=== PATIENT | male | born 1985 | race Caucasian/White ===

== ENCOUNTER 2021-10-30 15:43 | Emergency (ER) | payer OTHER | END 2021-10-31 01:00 | disposition home or self-care (01) | LOC: ER1 15:43 | DX: U07.1 COVID-19 (principal); Z23 Encounter for immunization; I10 Essential (primary) hypertension | CPT/HCPCS: 99283; M0245 ==

== ENCOUNTER 2022-06-20 09:32 | Emergency (ER) | payer OTHER ==
[2022-06-20 11:40] LABS: HEMOGLOBIN 14.9 gm/dl (14.0-17.5); RED BLOOD COUNT 5.02 M/UL (4.20-5.50); WHITE BLOOD COUNT 6.7 K/UL (4.5-11.0)
[2022-06-20 12:27] LABS: BUN/CREATININE RATIO 11 (0-10)
== END 2022-06-20 14:34 | disposition home or self-care (01) ==
LOC: ER1 09:32
DX: I10 Essential (primary) hypertension (principal); K21.9 Gastro-esophageal reflux disease without esophagitis; Z88.0 Allergy status to penicillin
CPT/HCPCS: 71045; 80053; 81001; 82550; 82553; 84484; 85025; 93005; 99285